=== PATIENT | male | born 2000 | race Two or more races ===

== ENCOUNTER 2020-11-25 18:31 | Emergency (ER) | payer MEDICAID ==
[~2020-11-25] VITALS: Ht 172.7 cm; Wt 72.7 kg
[2020-11-25 18:33] VITALS: BP 140/82
[2020-11-25] MEDS ORDERED: IBUPROFEN 600 MG TABLET PO ONE (19:00)
[2020-11-25] MEDS ORDERED: LORazepam 1 MG TABLET PO ONE (19:00)
[2020-11-25] MEDS ORDERED: BENZTROPINE MESYLATE 2 MG TABLET PO ONE (20:45)
[2020-11-25] MEDS ORDERED: FluPHENAZine HCL 5 MG TABLET PO ONE (20:45)
[2020-11-25] MEDS ORDERED: HydrOXYzine PAMOATE 50 MG CAPSULE PO ONE (20:45)
== END 2020-11-25 23:16 | disposition home or self-care (01) ==
LOC: EMS 18:31
DX: S20.219A Contusion of unspecified front wall of thorax, initial encounter (principal); F20.9 Schizophrenia, unspecified; F41.9 Anxiety disorder, unspecified; Y04.0XXA Assault by unarmed brawl or fight, initial encounter; Y93.89 Activity, other specified; Y92.89 Other specified places as the place of occurrence of the external cause; Y99.8 Other external cause status
CPT/HCPCS: 71045-TC